=== PATIENT | female | born 1995 | race Caucasian/White ===

== ENCOUNTER 2019-03-30 09:02 | Day surgery (SDC) | payer BC ==
--- NOTE | 2019-03-26 17:04 | HP ---
PATIENT: LUCILLE BEYER MEDICAL RECORD: [id number] ACCOUNT: [id number] LOCATION:[facility] : 94 ADMISSION DATE: 03/30/19 PCP: No PCP HISTORY AND PHYSICAL EXAMINATION HISTORY: Lucille is 24 years old. She has been having persistent problems with strep and chronic tonsillitis. She is being admitted for tonsillectomy and adenoidectomy. PAST MEDICAL HISTORY: Includes hypothyroidism. PAST SURGICAL HISTORY: Bilateral myringotomy and tubes as a child. CURRENT MEDICATIONS: Synthroid, Effexor, and oral contraceptive. ALLERGIES: CODEINE. PHYSICAL EXAMINATION: GENERAL: She is healthy appearing and developmentally normal. FACE: Normal and symmetric. No lesions. EYES: Sclerae and conjunctivae are normal. EARS: Canals and TMs are normal. NOSE: No masses, polyps, or drainage. ORAL CAVITY AND OROPHARYNX: A 3+ cryptic tonsils with caseous changes. NECK: Small jugulodigastric adenopathy bilaterally. CHEST: Clear. CARDIOVASCULAR: Regular rate and rhythm. No murmur. EXTREMITIES: Normal. IMPRESSION: Chronic pharyngitis. PLAN: Tonsillectomy and adenoidectomy. TRANSINT:[id number] Voice Confirmation ID: [id number] DOCUMENT ID: [id number] JASON RAINES MD at 1704 CC: [id number] DICTATION DATE: 03/26/19 152 WHEEL ROLLER: 03/26/19 1541 [facility] [address] [place] [address]
[~2019-03-30] VITALS: Ht 160 cm; Wt 68.0 kg
[~2019-03-30 09:02] MED LIST: AMETHIA 0.15-01 EACH PO; EFFEXOR XR75 MG PO; SYNTHROID125 MCG PO
[2019-03-30 09:34] LABS: HCG SERUM NEGATIVE (NEGATIVE)
[2019-03-30 09:53] VITALS: BP 129/79; Ht 160 cm; Wt 68.0 kg
[2019-03-30 09:53] LABS: HEMATOCRIT 38.6 % (36.0-48.0); HEMOGLOBIN 13.6 g/dL (12-16); MCH 31.6 pg (26.0-34.0); MCHC 35.2 g/dL (31.0-37.0); MCV 89.8 fL (80.0-100.0); MEAN PLATELET VOLUME 11.1 fL (7.4-10.4); RBC 4.3 10x6/uL (4.00-5.40); RDW 12.7 % (11.5-14.5); WBC 7.2 10x3/uL (4.8-10.8)
--- NOTE | 2019-04-01 12:57 | OP ---
PATIENT NAME: PAPO BEYER MEDICAL RECORD: [id number] :94 LOCATION:[facility] ADMISSION DATE: SURGEON: JASON CARR MD DATE OF OPERATION: 03/30/2019 PREOPERATIVE DIAGNOSIS: Chronic pharyngitis. POSTOPERATIVE DIAGNOSIS: Chronic pharyngitis. PROCEDURE: Tonsillectomy and adenoidectomy. SURGEON: Jason Carr MD ANESTHESIA: General orotracheal. BLOOD LOSS: Less than 50 cc. SPECIMENS: Right and left tonsil. COMPLICATIONS: None. DISPOSITION: Recovery, stable. PROCEDURE NOTE: She was brought to the operating room, placed in the supine position, sedated and intubated by anesthesia. Eyes were taped. Table was turned 90 degrees. Head drape was applied. She was positioned for tonsillectomy. Using a headlight, a Ana Laura-Patrick mouth gag was carefully inserted and elevated on towel on her chest. The palate was examined and palpated, it was normal. A red rubber catheter was placed through right side of the nose and pharynx and grasped with tonsil clamp to retract the soft palate. Using a mirror, the nasopharynx was examined. Suction cautery on a setting of 35 was used to ablate and suction the adenoid pad with no significant bleeding. Choanae and eustachian orifices were normal bilaterally. The red rubber catheter was let down and removed. The right tonsil was grasped at superior pole with a straight Allis clamp. Spatula tip cautery on a setting of 9 was used to dissect out the tonsil along its capsule, preserving the anterior and posterior tonsillar pillar. Suction cautery on a setting of 18 was used to control bleeding. Then, the left tonsil was removed in the same fashion. Then, both sides of the nose were irrigated with saline. The pharynx was suctioned. Tonsillar fossae were agitated. Suction cautery on a setting of 18 was used to control oozing bilaterally. Once the field was completely clean and dry, the Ana Laura-Patrick mouth gag was let down and removed. She was awakened, extubated, and transported to recovery in good condition. No complications. TRANSINT:[id number] Voice Confirmation ID: [id number] DOCUMENT ID: [id number] JASON CARR MD at 1257 CC: [id number] DICTATION DATE: 03/30/19 1449 MOTOR COACH DRIVER: 03/30/19 1636 [facility] [place] 03/30/19 [facility] [address] [place] [address]
== END 2019-03-30 14:09 | disposition home or self-care (01) ==
LOC: D.OPS 09:02 → D.PAN 11:15 → D.OPS 11:30 → D.PAN 11:30 → D.OPS 14:09
PROVIDERS: Anesthesiology; ATTEND Otolaryngology
DX: J35.01 Chronic tonsillitis (principal); Z01.812 Encounter for preprocedural laboratory examination; E03.9 Hypothyroidism, unspecified; Z79.899 Other long term (current) drug therapy; Z88.5 Allergy status to narcotic agent; Z79.3 Long term (current) use of hormonal contraceptives